=== PATIENT | male | born 1980 | race Caucasian/White ===

== ENCOUNTER 2016-07-04 20:49 | Emergency (ER) | payer BC ==
--- NOTE | 2016-07-04 21:44 | ERNOTE ---
Trauma/Assault HPI - General Stated Complaint: FALL TWO DAYS AGO - HEAD INJURY Time Seen by Provider: 07/04/16 21:43 Source: family Exam Limitations: clinical condition - Immun/Allergies/Home Medications Immunizations: IMMUNIZATION HX Immunizations Up to Date Yes History of Influenza Vaccine Yes Hx Pneumococcal Vaccination No Allergies/Adverse Reactions: Allergies No Known Allergies Allergy (Verified 07/04/16 21:00) - History of Present Illness Narrative: Pt fell striking the back of his head two days ago. Family states he has not been himself, has been vomiting and has very poor memory Location Occurred: Reports: street Pain Location: Reports: head, neck Method of Injury: Reports: fall Severity: moderate Modifying Factors - (Worsens): Reports: movement Loss of Consciousness: Reports: no loss of consciousness Associated Symptoms - Trauma: Reports: headache, confusion Review of Systems - Review of Systems Constitutional: Present: See HPI. Absent: recent illness EYE: Present: vision changes Respiratory: Present: no symptoms reported Cardiology: Present: no symptoms reported Gastrointestinal/Abdominal: Present: vomiting Genitourinary: Present: no symptoms reported Musculoskeletal: Present: muscle pain, muscle stiffness, neck pain Skin: Present: lumps - upper occiput Neurological: Present: See HPI, headache Endocrine: Present: no symptoms reported Hematologic/Lymphatic: Present: no symptoms reported Psych: Present: no symptoms reported - Patient's Past Medical History Patient History - Medical: No pertinent hx Patient History - Cardiac/Respiratory: Hypertension Patient History - Cancer: No Hx of Cancer Patient History - Surgical Procedures: Back Surgery Patient History - Other: None - Social History Living Situations: home Abuse History: No History of abuse Psych History: No pertinent hx Smoking Status: Current every day smoker Patient requests Smoking Cessation Consult: No Initiate information on Smoking Cessation: No Alcohol Use: occasionally Drug Use: none - Immunizations Immunizations Up to Date: Yes Hx Pneumococcal Vaccination: No History of Influenza Vaccine: Yes Physical Exam - Physical Exam General Appearance: Present: wd/wn, alert, mild distress Eye Exam: Normal inspection: bilateral, PERRL: bilateral, EOMI: bilateral Ears, Nose, Throat: Present: nasal congestion - with mild slightly mucoid discharge, other - palatte rises symetrical bilateral. . Absent: pharyngeal erythema Neck: Present: tender lateral Respiratory: Present: no respiratory distress. Absent: chest tenderness Back Exam: Present: no CVA tenderness. 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 Could not remember what he ate for breakfast or lunch today. Was not clear on the incident or how it happened according to his Skin Exam: Present: normal color, warm/dry Lymphatic Exam: Present: no adenopathy ED Progress - Vital Signs Vital Signs: Vital Signs 07/04/16 20:54 Temperature 36 C L Pulse Rate 90 Respiratory 18 Rate Blood Pressure 151/100 O2 Sat by Pulse 96 Oximetry - CT/Ultrasound CT/Ultrasound Narrative: CT head without: no hemorrhage or ischemic change. Age appropriate ventricles. No depressed calvarial fracture. Imaged portion of the paranasal sinuses and mastoid air cells unremarkable - Progress/Reassessment Chief Complaint: Fall Departure Clinical Impression: Concussion Qualifiers: Encounter type: initial encounter Loss of consciousness presence/duration: without LOC Qualified Code(s): S06.0X0A - Concussion without loss of consciousness, initial encounter - Departure Disposition: Home Follow Up Needed Condition: Fair Instructions: Concussion, Adult, [id number] Additional Instructions: See your usual provider as soon as possible Referrals: Celia Ramirez ARNP [Primary Care Provider] -
--- OUTSIDE RECORDS SUMMARY | 2016-07-04 22:03 | XMS REPORT | Continuity of Care Document ---
:1980 Author Organization [facility] ([facility]) Address [place] [place] [address] Phone [phone] Care Team Providers Name Role Phone Miguel Angel Kwon Primary Care Provider [phone] Source Comments This disclosure is being made pursuant to the Care Everywhere program, applicable federal and state laws, and may not contain all informaitonavailable regarding this patient.[facility] ([facility]) Active Allergies and Adverse Reactions No Known Allergies Current Medications Not on file Active Problems Not on file Social History Tobacco Use Types Packs/Day Years Used Date Never Assessed Last Filed Vital Signs Vital Sign Reading Time Taken Blood Pressure 151/93 03/21/2010 9:22 AM 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 Pulse 80 03/21/2010 9:22 AM 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 Temperature 36 C (96.8 F) 03/21/2010 9:22 AM 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 Respiratory Rate 20 03/21/2010 9:22 AM 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 Height 1.778 m (5' 10") 03/21/2010 9:22 AM 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 Weight 88.451 kg (195 lb) 03/21/2010 9:22 AM 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 Body Mass Index 27.98 03/21/2010 9:22 AM 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 Oxygen Saturation 98% 03/21/2010 9:22 AM 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 Plan of Care Health Maintenance Due Date Last Done Comments Hepatitis B Vaccine (1 of 3 - Primary Series) 1980 Tdap Vaccine 07/31/1990 Lipid Disorder Screening 07/31/1997 MMR Vaccine 07/31/1997 Td Vaccine 07/31/1997 Varicella Vaccine (1 of 2 - Adult - No Evidence of 07/31/1997 Immunity) Influenza Vaccine: Seasonal (#1) 12/06/2015 Results from Last 3 Months Not on file
[2016-07-04] MEDS ORDERED: KETOROLAC TROMETHAMINE 60 MG/2 ML VIAL IM ONE ×2 (22:13→22:14)
[2016-07-04 22:36] VITALS: BP 147/98
== END 2016-07-04 22:20 | disposition home or self-care (01) ==
LOC: ER 20:49
DX: S06.0X0A Concussion without loss of consciousness, initial encounter (principal); Z72.0 Tobacco use; W18.30XA Fall on same level, unspecified, initial encounter; Y92.410 Unspecified street and highway as the place of occurrence of the external cause

== ENCOUNTER 2016-11-16 13:28 | Emergency (ER) | payer OTHER, BC ==
[2016-11-16 13:34] VITALS: BP 156/88
[2016-11-16] MEDS ORDERED: HYDROmorphone HCL 1 MG/ML DISP.SYRIN IM ONE (13:52)
[2016-11-16] MEDS ORDERED: HYDROmorphone HCL 1 MG/ML DISP.SYRIN ONE (13:53)
--- NOTE | 2016-11-16 15:10 | ERNOTE ---
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 platform and rolled ankle, has had pain and swelling, unable to walk Time Seen by Provider: 11/16/16 13:39 Source: patient Exam Limitations: no limitations - Immun/Allergies/Home Medications Immunizations: IMMUNIZATION HX Immunizations Up to Date Yes History of Influenza Vaccine Yes Hx Pneumococcal Vaccination No Allergies/Adverse Reactions: Allergies Allergy/AdvReac Type Severity Reaction Status Date / Time No Known Allergies Allergy Verified 11/16/16 13:33 Home Medications: HOME MEDICATIONS HYDROcodone/ACETAMINOPHEN [Paradise 10-325 Tablet] 1 each PO TID #20 tablet [Last Taken Unknown] - History of Present Illness Occurred: yesterday Location of Incident: work Method of Injury: Reports: twisted, direct blow Reason for Fall: Reports: lost balance Loss of Consciousness: Reports: no loss of consciousness Modifying Factors - (Improves): Reports: other - nothing Associated Symptoms: Reports: unable to bear weight, snapping, popping sensation Other Injuries: Reports: none Subsequent Symptoms: Reports: sensory loss - none Review of Systems - Review of Systems Constitutional: Present: no symptoms reported EYE: Present: no symptoms reported ENT: Present: no symptoms reported Respiratory: Present: no symptoms reported Cardiology: Present: no symptoms reported Gastrointestinal/Abdominal: Present: no symptoms reported Genitourinary: Present: no symptoms reported Musculoskeletal: Present: See HPI, joint pain, joint swelling, other - right ankle Skin: Present: no symptoms reported Neurological: Present: no symptoms reported Endocrine: Present: no symptoms reported Hematologic/Lymphatic: Present: no symptoms reported - Patient's Past Medical History Patient History - Medical: No pertinent hx Patient History - Cardiac/Respiratory: Hypertension Patient History - Cancer: No Hx of Cancer Patient History - Surgical Procedures: Back Surgery Patient History - Other: None - Social History Living Situations: home Abuse History: No History of abuse Psych History: No pertinent hx Smoking Status: Former smoker Have you smoked in the past 12 months: No Do you dip or chew tobacco: No Patient requests Smoking Cessation Consult: No Alcohol Use: occasionally Drug Use: none - Immunizations Immunizations Up to Date: Yes Hx Pneumococcal Vaccination: No History of Influenza Vaccine: Yes Physical Exam - Physical Exam General Appearance: Present: moderate distress Head Exam: Present: normal inspection, no evidence of injury Eye Exam: Normal inspection: bilateral, PERRL: bilateral, EOMI: bilateral Ears, Nose, Throat: Present: normal ENT inspection Neck: Present: normal inspection, nontender Respiratory: Present: no respiratory distress, normal breath sounds, no accessory muscle use, chest nontender, lungs clear Cardiovascular/Chest: Present: regular rate, rhythm, no murmur, normal peripheral pulses Peripheral Pulses: N=norm/S=strong/W=weak/B=bound/A=absent: Carotid (R): Normal , Carotid (L): Normal, Radial (R): Normal, Radial (L): Normal, Femoral (R): Normal, Femoral (L): Normal, Dorsalis-pedis (R): Normal, Dorsalis-pedis (L): Normal Gastrointestinal/Abdominal: Present: normal bowel sounds, nontender, nondistended, soft, no organomegaly Back Exam: Present: normal inspection, normal range of motion, no CVA tenderness , no vertebral tenderness Extremity Exam: Present: pedal edema, bony tenderness, joint swelling, extremity edema - right ankle Neurological Exam: Present: alert, oriented, normal mood/affect, no motor/ sensory deficits DTR: N=norm/NB=norm/brisk/A=abs/DD=dull/dimin/HC=hyperactive: Bicep (R): Normal , Bicep (L): Normal, Tricep (R): Normal, Tricep (L): Normal, Knee (R): Normal, Knee (L): Normal, Ankle (R): Normal, Ankle (L): Normal Skin Exam: Present: normal color, warm/dry Lymphatic Exam: Present: no adenopathy ED Progress - Vital Signs Patient's Vital Signs:: I have reviewed the patient's vital signs. Vital Signs: Vital Signs 11/16/16 13:29 Temperature 35.8 C L Pulse Rate 87 Respiratory 12 Rate Blood Pressure 156/88 O2 Sat by Pulse 97 Oximetry - Progress/Reassessment Chief Complaint: Foot Injury/Pain - Transfer of Care Expected Disposition: Discharge - case discussed with greg rios to see in clinic in am, ocl applied Departure Clinical Impression: Right ankle sprain - Departure Disposition: Home self-care Instructions: Ankle Sprain, [id number] Referrals: Celia Ramirez ARNP [Primary Care Provider] - Prescriptions: HYDROcodone/ACETAMINOPHEN [Paradise 10-325 Tablet] 1 each PO TID #20 tablet
== END 2016-11-16 16:35 | disposition home or self-care (01) ==
LOC: ER 13:28
PROC: 2W3TX1Z Immobilization of Left Foot using Splint (ICD-10-PCS; principal; 2016-11-16)
DX: S93.402A Sprain of unspecified ligament of left ankle, initial encounter (principal); X50.1XXA Overexertion from prolonged static or awkward postures, initial encounter; Y93.9 Activity, unspecified; Y92.63 Factory as the place of occurrence of the external cause; Y99.0 Civilian activity done for income or pay

== ENCOUNTER 2016-11-22 19:04 | Emergency (ER) | payer SELFPAY ==
[2016-11-22] MEDS ORDERED: HYDROcodone/ACETAMINOPHEN 1 EACH TABLET PO ONE (19:34)
--- NOTE | 2016-11-22 19:35 | ERNOTE ---
Lower Extremity HPI - Narrative Date of Service: 11/22/16 - General Lower Extremities Pain: ankle: left Time Seen by Provider: 11/22/16 19:27 Source: patient, RN notes reviewed, old records Exam Limitations: no limitations - Immun/Allergies/Home Medications Immunizations: IMMUNIZATION HX Immunizations Up to Date Yes History of Influenza Vaccine Yes Hx Pneumococcal Vaccination No Allergies/Adverse Reactions: Allergies Allergy/AdvReac Type Severity Reaction Status Date / Time No Known Allergies Allergy Verified 11/22/16 19:14 Home Medications: HOME MEDICATIONS HYDROcodone/ACETAMINOPHEN [Tina 5-325] 1 tab PO Q6H PRN #20 tab 11/22/16 [Last Taken Unknown] Ibuprofen 800 mg PO PRN 11/22/16 [Last Taken Unknown] - History of Present Illness Narrative: 36 y/o male ambulatory to the ED with his family for ongoing left ankle pain and swelling after an injury at work on 11/15/16. 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 He was seen here the next day. An xray and a CT of the ankle were done. No fracture was visualized. He followed up with orthopedics the next day. The ankle was put in a Cam boot. He was referred to PT but his employer has not contacted him with those arrangements. He has been using crutches and taking ibuprofen for pain. He became concerned today when he developed a burning sensation in the foot and ankle. He then noticed the extremity looked red and felt warm to touch. Date (Duration): 11/15/16 Location of Incident: work Method of Injury: Reports: twisted Subsequent Symptoms: Denies: sensory loss, numbness, motor loss Prior Treament: Reports: recently seen Review of Systems - Review of Systems Constitutional: Absent: fever, chills EYE: Present: no symptoms reported ENT: Present: no symptoms reported Respiratory: Present: no symptoms reported Cardiology: Present: no symptoms reported Gastrointestinal/Abdominal: Absent: nausea, vomiting, abdominal pain, eating less, drinking less Genitourinary: Present: no symptoms reported Musculoskeletal: Present: joint pain, joint swelling Skin: Present: change in color. Absent: rash, lesions, lumps Neurological: Absent: weakness, numbness, tingling Endocrine: Present: no symptoms reported Hematologic/Lymphatic: Absent: easy bruising, easy bleeding Psych: Present: no symptoms reported - Patient's Past Medical History Patient History - Medical: No pertinent hx Patient History - Cardiac/Respiratory: Hypertension Patient History - Cancer: No Hx of Cancer Patient History - Surgical Procedures: Back Surgery Patient History - Other: None - Social History Living Situations: spouse Abuse History: No History of abuse Psych History: No pertinent hx Smoking Status: Former smoker Alcohol Use: occasionally Drug Use: none - Immunizations Immunizations Up to Date: Yes Hx Pneumococcal Vaccination: No History of Influenza Vaccine: Yes Physical Exam - Physical Exam General Appearance: Present: wd/wn, alert, no apparent distress Respiratory: Present: no respiratory distress, no accessory muscle use Cardiovascular/Chest: Present: normal peripheral pulses Peripheral Pulses: N=norm/S=strong/W=weak/B=bound/A=absent: Dorsalis-pedis (L): Strong Extremity Exam: Present: decreased range of motion - Left ankle, bony tenderness - Left lateral malleolus, joint swelling - Left ankle and foot. Absent: joint redness Neurological Exam: Present: alert, oriented, normal mood/affect, no motor/ sensory deficits Skin Exam: Present: normal color, warm/dry, other - fading ecchymosis present on left foot/ankle ED Progress - Vital Signs Patient's Vital Signs:: I have reviewed the patient's vital signs. Vital Signs: Vital Signs 11/22/16 19:05 Temperature 36.7 C Pulse Rate 76 Respiratory 16 Rate Blood Pressure 164/105 O2 Sat by Pulse 97 Oximetry - X-Ray X-Ray #1 X-Ray: ankle Interpretation: Reviewed by me X-ray Comments: Technique: Left ankle series (3 views) Comparison: Radiographs dated November 16, 2016, CT of the left ankle dated November 16, 2016. Findings: No acute fracture or dislocation. No evidence of a healing fracture. Alignment is anatomic. Mineralization is normal. There is a small plantar calcaneal heel spur. Otherwise, no significant degenerative change. No destructive osseous lesions. The ankle mortise is intact. There is suggestion of a small tibiotalar joint space effusion. Soft tissue swelling is noted. Impression: No acute osseous findings. No evidence of a healing fracture. Additional findings and comments are as above. Electronically signed by Elan Lindquist D.O.. Elan Lindquist DO - Progress/Reassessment Chief Complaint: Lower Extremity Pain/ Injury Progress:: Improved Departure Clinical Impression: Severe sprain of left ankle Qualifiers: Encounter type: initial encounter Qualified Code(s): S93.402A - Sprain of unspecified ligament of left ankle, initial encounter - Departure Disposition: Home Follow Up Needed Condition: Stable Instructions: Ankle Sprain Additional Instructions: Continue ice, elevation and non-weight bearing Can just wear YUAN wrap instead of boot if the boot is causing too much pain Continue ibuprofen Follow up with orthopedics as scheduled Referrals: Charlie Phipps, PAC [[facility]] - Prescriptions: HYDROcodone/ACETAMINOPHEN [Tina 5-325] 1 tab PO Q6H PRN #20 tab PRN Reason: Pain
[2016-11-22] MEDS ORDERED: HYDROcodone/ACETAMINOPHEN 1 EACH TABLET ONE (19:36)
[2016-11-22 21:04] VITALS: BP 141/90
== END 2016-11-22 20:53 | disposition home or self-care (01) ==
LOC: ER 19:04
DX: S93.402A Sprain of unspecified ligament of left ankle, initial encounter (principal); Z87.891 Personal history of nicotine dependence; X50.1XXA Overexertion from prolonged static or awkward postures, initial encounter; Y93.89 Activity, other specified; Y92.63 Factory as the place of occurrence of the external cause; Y99.0 Civilian activity done for income or pay

== ENCOUNTER 2017-05-14 03:23 | Emergency (ER) | payer MEDICAID ==
[2017-05-14 03:29] VITALS: BP 152/99
[2017-05-14] MEDS ORDERED: KETOROLAC TROMETHAMINE 60 MG/2 ML VIAL IM ONE ×2 (03:49→03:53)
[2017-05-14] MEDS ORDERED: PROMETHAZINE HCL 50 MG/ML AMPUL IM ONE (03:50)
[2017-05-14] MEDS ORDERED: PROMETHAZINE HCL 25 MG/ML AMPUL ONE (03:53)
--- NOTE | 2017-05-14 03:55 | ERNOTE ---
Back Pain ER HPI Date of Service: 05/14/17 Presenting Symptoms: injury/pain to back, hx chronic back pain Time Seen by Provider: 05/14/17 03:42 Source: patient, family Exam Limitations: no limitations Immunizations: IMMUNIZATION HX Immunizations Up to Date Yes History of Influenza Vaccine Yes Hx Pneumococcal Vaccination No Allergies/Adverse Reactions: Allergies No Known Allergies Allergy (Verified 05/14/17 03:29) Home Medications: HOME MEDICATIONS Acetaminophen [Tylenol] 1,000 mg PO PRN PRN 05/14/17 [Last Taken Unknown] Cyclobenzaprine HCl [Flexeril] 10 mg PO TID PRN #30 tab 05/14/17 [Last Taken Unknown] Ibuprofen [Motrin] 800 mg PO PRN PRN 05/14/17 [Last Taken Unknown] Meloxicam [Mobic] 15 mg PO DAILY #30 tab 05/14/17 [Last Taken Unknown] Narrative: Hx of back surgery and frequent back pain. No precipitating factors today. Severe pain at work, could not continue. Bilateral. Radiates down right leg. Not radiating on left. No weakness. No urinary symptoms. No fever or chills. No cough or flu. Pain aggravated by any movement. Review of Systems - Review of Systems Constitutional: Present: no symptoms reported Respiratory: Present: no symptoms reported Gastrointestinal/Abdominal: Present: no symptoms reported Genitourinary: Present: no symptoms reported Musculoskeletal: Present: back pain, muscle stiffness Skin: Present: no symptoms reported Neurological: Present: no symptoms reported. Absent: weakness, numbness, tingling, pre-existing deficit Psych: Present: no symptoms reported - Patient's Past Medical History Patient History - Medical: Other Patient History - Cardiac/Respiratory: Hypertension Patient History - Cancer: No Hx of Cancer Patient History - Surgical Procedures: Back Surgery Patient History - Other: None - Social History Living Situations: home Abuse History: No History of abuse Psych History: No pertinent hx Smoking Status: Former smoker Have you smoked in the past 12 months: No Do you dip or chew tobacco: Yes Alcohol Use: none Drug Use: none - Immunizations Immunizations Up to Date: Yes Hx Pneumococcal Vaccination: No History of Influenza Vaccine: Yes Physical Exam - Physical Exam General Appearance: Present: wd/wn, alert, moderate distress Head Exam: Present: normal inspection Neck: Present: normal inspection, nontender Respiratory: Present: no respiratory distress, normal breath sounds, lungs clear Cardiovascular/Chest: Present: regular rate, rhythm Back Exam: Present: normal inspection, no vertebral tenderness, decreased range of motion, muscle spasm Extremity Exam: Present: decreased range of motion - slr decreased bilaterally DTR: N=norm/NB=norm/brisk/A=abs/DD=dull/dimin/HC=hyperactive: Knee (R): Normal, Knee (L): Normal, Ankle (R): Normal, Ankle (L): Normal Skin Exam: Present: normal color ED Progress - Vital Signs Patient's Vital Signs:: I have reviewed the patient's vital signs. Vital Signs: Vital Signs 05/14/17 05/14/17 03:25 03:31 Temperature 36.4 C L 36.4 C L Pulse Rate 85 85 Respiratory 20 20 Rate Blood Pressure 152/99 152/99 O2 Sat by Pulse 100 100 Oximetry - Progress/Reassessment Chief Complaint: Back Pain Plan - Plan Plan: IM injection. Off work. F/U with PCP. Flexeril and meloxicam. Departure Clinical Impression: Low back pain, Right sided sciatica - Departure Disposition: Home self-care Condition: Good Instructions: Sciatica, [id number], Form - Excuse from Work, School, or Physical Activity Additional Instructions: Take the flexeril 3 x per day until improved then only take it at bedtime as it will cause sedation. continue to take Meloxicam. Do not take ibuprofen or naproxen while taking Meloxicam. Referrals: Celia Ramirez ARNP [Primary Care Provider] - Prescriptions: Cyclobenzaprine HCl [Flexeril] 10 mg PO TID PRN #30 tab PRN Reason: MUSCLE SPASMS Meloxicam [Mobic] 15 mg PO DAILY #30 tab
== END 2017-05-14 04:09 | disposition home or self-care (01) ==
LOC: ER 03:23
DX: M54.5 Low back pain; M54.31 Sciatica, right side; Z87.891 Personal history of nicotine dependence